=== PATIENT | female | born 1985 | race Caucasian/White ===

== ENCOUNTER 2017-01-30 20:58 | Emergency (ER) | payer SELFPAY ==
[~2017-01-30] VITALS: Ht 165.1 cm; Wt 54.5 kg
[2017-01-30 21:03] VITALS: BP 140/96; PULSE 57; RESP 16; O2SAT 100
--- NOTE | 2017-01-30 23:09 | ED.REPORT ---
HPI-Extremity Problem Upper Date of Service January 30, 2017 ED Provider: Vlad Perkins MD A healthy 31 year old female presents to the ER complaining of a laceration to the left hand secondary to cutting her hand with a kitchen knife while opening a pack of sarah just prior to arrival. Patient denies any further injuries. Nursing Notes Stated Complaint: CUT TO LEFT HAND Chief Complaint: Extremity Trauma Nursing Notes Reviewed: Yes Allergies: Coded Allergies: cephalexin (Verified Allergy, Mild, RASH, 01/30/17) Uncoded Allergies: PENICILLIN (Allergy, Mild, RASH, 01/30/17) SULFA (Allergy, Mild, 01/30/17) Scheduled PRN Ibuprofen (Ibuprofen) 600 Mg Tablet 600 MG PO QID PRN PRN For Pain General Time Seen by MD: 23:09 Chief Complaint Hand Injury left Hx Obtained From: Patient Arrived By: Walk-in Onset Occurred: Just prior to arrival Symptom Duration: Since onset Caused by: Accidental Context: Occurred at: Home injury Location: : Hand left Quality: Painful Severity: Current: Mild Severity: Maximum: Moderate Pertinent Negative: Pt denies other symptoms Similar Sx Previous: No Past Medical History Past Medical History Healthy Smoking History Unknown if Ever Smoker Social History Alcohol Use: "Social" Ambulatory Status Independent Review of Systems Musculoskeletal: Reports: Extremity pain (Left Hand), Denies: Back pain, Joint pain, Lumbar pain, Neck pain, Thoracic pain Complete sys rev & neg: except as marked. Physical Exam Initial Vital Signs Vital Signs (First) Date Time Temp Pulse Resp B/P Pulse Ox O2 Delivery O2 Flow Rate FiO2 01/30/17 21:03 36.8 57 16 140/96 100 Room Air Initial VS: Reviewed General/Constitutional: Well-developed, Well-nourished Head / Eyes: Atraumatic, Normocephalic Neck: Supple, Non-tender, Full range of motion Lower Extremities: Vascular intact, Neuro intact, No swelling, No tenderness Skin: Warm, Dry, No cyanosis Neurologic: Alert, Oriented, Nonfocal Psychiatric: Mood/affect normal, Behavior normal, Normal thought content Upper Extremity / MS: Atraumatic, Inspection NL, Full range of motion, No swelling, Non-tender, No snuffbox tenderness, No erythema, No deformity, Neurologic intact, Vascular intact, No compartment syndrome, No clubbing/ cyanosis Wrist / Hand: Full range of motion, No deformity, Neurologic intact, Vascular intact, No ligamentous injury, Tendon function NL 5cm triangular flap laceration to the web space between the thumb and forefinger of the left hand extending into subcutaneous fat, no other deep structure involvement. Procedures Laceration Management Laceration Management: Suture Technique: 2 simple, 3 horizontal mattress, 3 vertical mattress Time: 23:42 Procedure Performed by: ED physician Consent / Setup / Site Prep: Informed consent provided, Consent from patient , Time-out performed, Hand hygiene observed, Stand sterile technique Location of Wound: Triangular flap laceration to the web space between the thumb and forefinger of the left hand Wound Length: 5 cm Local Anesthesia: Lidocaine 1% Digital Block: No Wound Preparation: Other (Dermal Wound Cleanser) Debridement: None Irrigation: Copious Repair Skin: ___ O (4), Nylon # Sutures - Skin: 8 Closure Layers: 1 Post-Procedure / Complications: Antibiotic oint applied, Dressing applied, No complications, Condition improved, Tolerated procedure well, Patient stable Re-Eval/Medical Decision Med Decision/Clinical Course 31-year-old sustained a flap laceration of the web of the thumb. No neurovascular or deep structure injury. No tendon injury. Closed as detailed above. Discharged stable condition. Re-Evaluation/Progress : Time of Eval: 23:42 Re-Evaluation/Progress Note: Completed laceration management. Discussed plan to discharge. Patient is amenable to the plan. Return precautions given. All other questions addressed. Counseled Regarding: Diagnosis, Need for follow-up, When/why to return to ED Discharge & Departure Impression: Primary Impression: Hand laceration Disposition: Home Discharge Condition All VS Reviewed: Yes Condition: Improved Patient Instructions: Laceration (GEN) Additional Instructions: Keep the wound clean. Apply Bacitracin ointment to the wound three times daily, and redress with clean gauze and wrap. Ibuprofen as needed for pain. Follow-up here in the ER or with your primary care physician to have the sutures removed in 10 days. Return to the ER if you develop fever, chills, redness, swelling, wound discharge, or any other signs of infection. Referrals: NOPCP (PCP) Scribe Attestation Portions of this note were transcribed by Anjelica Monaco. I, Dr. Perkins, personally performed the history, physical exam and medical decision-making; I reviewed and confirmed the accuracy of the information in the transcribed note. Signed by: Sami Biggs, 01/31/2017 at 00:26 Vlad Perkins MD January 30, 2017 23:09 ANJELICA MONACO January 30, 2017 23:13
[2017-01-31] MEDS ORDERED: IBUP-1827 PO (00:12)
[2017-01-31] MEDS ORDERED: TdaP Vaccine 0.5 mL Inj IM ONE (00:30)
[2017-01-31 00:45] VITALS: BP 126/89; PULSE 69; RESP 16; O2SAT 100
== END 2017-01-31 00:46 | disposition home or self-care (01) ==
LOC: SED 20:58
DX: S61.412A Laceration without foreign body of left hand, initial encounter (principal); W26.0XXA Contact with knife, initial encounter; Y93.G1 Activity, food preparation and clean up; Y92.010 Kitchen of single-family (private) house as the place of occurrence of the external cause; Y99.8 Other external cause status; Z88.0 Allergy status to penicillin; Z88.1 Allergy status to other antibiotic agents; Z88.2 Allergy status to sulfonamides; Z23 Encounter for immunization